=== PATIENT | female | born 1945 | race Caucasian/White ===

== ENCOUNTER 2019-08-04 13:56 | Outpatient (CLI) | payer MEDICARE, SELFPAY ==
--- NOTE | ~2019-08-04 | DEXA_ITS ---
Bone Density Report Name: Jania Blanco Age: 74 Sex: Female Ethnicity: White Date of : 1945 Indication: postmenopausal; parental hip fracture; height loss; Referring Provider: ROBI ANDERSON Study: Bone densitometry was performed. Exam Date: August 04, 2019 Accession number: [id number] Bone Density: Region BMD T-score Z-score Classification AP Spine (L2, L3) 1.122 0.6 2.8 Normal Femoral Neck (Left) 0.651 -1.8 0.1 Osteopenia Total Hip (Left) 0.850 -0.8 0.9 Normal Total Hip Bilateral Avg 0.848 -0.8 0.8 Normal Femoral Neck (Right) 0.615 -2.1 -0.2 Osteopenia Total Hip (Right) 0.845 -0.8 0.8 Normal World Health Organization criteria for BMD impression classify patients as: Normal (T-score at or above -1.0), Osteopenia (T-score between -1.0 and -2.5), or Osteoporosis (T-score at or below -2.5). 10-year Fracture Risk(1): Major Osteoporotic Fracture 19% Hip Fracture 6.8% Reported Risk Factors: [place] (), Neck BMD=0.615, BMI=34.2, parental fracture (1) FRAX(R) Version 3.08. Fracture probability calculated for an untreated patient. Fracture probability may be lower if the patient has received treatment. Previous Exams: Region Exam Age BMD T-score BMD Change BMD Change Date g/cm2 vs Baseline vs Previous AP Spine(L2, L3) 08/04/2019 74 1.122 0.6 0.056(5.3%)# 0.030(2.8%)* 07/31/2017 72 1.091 0.3 0.026(2.5%)# -0.057(-5.0%)* 07/26/2014 69 1.148 0.8 0.083(7.8%)# 0.054(4.9%)# 07/19/2011 65 1.094 0.3 0.029(2.7%)# -0.083(-7.0%)# 07/13/2009 63 1.177 1.1 0.112(10.5%)* 0.112(10.5%)* 07/09/2007 61 1.065 0.1 Total Hip(Left) 08/04/2019 74 0.850 -0.8 -0.156(-15.5%) -0.014(-1.6%) 07/31/2017 72 0.863 -0.6 -0.142(-14.2%) -0.038(-4.3%)* 07/26/2014 69 0.902 -0.3 -0.104(-10.4%) -0.017(-1.9%)# 07/19/2011 65 0.919 -0.2 -0.087(-8.6%)# -0.080(-8.0%)# 07/13/2009 63 0.999 0.5 -0.007(-0.7%) -0.007(-0.7%) 07/09/2007 61 1.006 0.5 Total Hip(Right) 08/04/2019 74 0.845 -0.8 -0.174(-17.1%) -0.066(-7.3%)* 07/31/2017 72 0.912 -0.2 -0.108(-10.6%) -0.005(-0.6%) 07/26/2014 69 0.917 -0.2 -0.102(-10.0%) -0.074(-7.5%)# 07/19/2011 65 0.991 0.4 -0.028(-2.7%)# -0.006(-0.6%)# 07/13/2009 63 0.997 0.4 -0.022(-2.2%) -0.022(-2.2%) 07/09/2007 61 1.019 0.6 *Denotes significance at 95% confidence level, LSC for AP Spine = 0.022 g/cm2, LSC for Total Hip = 0.027 g/cm2 Clinical Information Provided by Patient:
--- NOTE | ~2019-08-04 | MM_ITS ---
EXAMINATION: MM screening [facility] BI w willam HISTORY: Screening mammogram TECHNIQUE: Craniocaudal and mediolateral oblique 3-D tomosynthesis images were obtained and synthetic 2-D images were generated. CAD analysis was submitted and interpreted. COMPARISON: 08/01/2018, 07/31/2017, 07/30/2016 bilateral digital screening mammogram examinations BREAST PARENCHYMAL COMPOSITION: Scattered bilateral benign calcifications. FINDINGS: There is no evidence of suspicious mass, calcification, or architectural distortion to sugg est malignancy in either breast. There has been no suspicious interval change. IMPRESSION: 1. No mammographic evidence of malignancy. 2. Recommend routine screening mammography in one year. BI-RADS Category 2: Benign finding(s). Reviewed, dictated and finalized at location A. KMAN
== END 2019-08-04 13:57 | disposition home or self-care (01) ==
LOC: ANHIMG 14:07
PROVIDERS: PCP Internal Medicine; Visit Provider Internal Medicine
DX: Z12.31 Encounter for screening mammogram for malignant neoplasm of breast (principal); Z78.0 Asymptomatic menopausal state; M85.89 Other specified disorders of bone density and structure, multiple sites
CPT/HCPCS: 77063; 77067; 77080

== ENCOUNTER → 2020-04-05 11:48 | Outpatient (REF) | payer MEDICARE, SELFPAY | LOC: ANHLAB 11:48 | PROVIDERS: PCP Internal Medicine; Visit Provider Nurse Practitioner | DX: D10.39 Benign neoplasm of other parts of mouth (principal) | CPT/HCPCS: 88305 ==

== ENCOUNTER 2020-11-15 14:07 | Outpatient (CLI) | payer MEDICARE, SELFPAY ==
--- NOTE | ~2020-11-15 | MM_ITS ---
EXAMINATION: MM screening [facility] BI w willam HISTORY: Screening mammogram TECHNIQUE: Craniocaudal and mediolateral oblique 3-D tomosynthesis images were obtained and synthetic 2-D images were generated. CAD analysis was submitted and interpreted. COMPARISON: 08/04/2019, 08/01/2018, 07/31/2017, 07/30/2016 bilateral digital screening mammogram examination s BREAST PARENCHYMAL COMPOSITION: There are scattered areas of fibroglandular density. FINDINGS: Numerous bilateral benign calcifications including calcified microhematomas, secretory calc ifications. There is no evidence of suspicious mass, calcification, or architectural distortion to wilson ggest malignancy in either breast. There has been no suspicious interval change. IMPRESSION: 1. Benign findings. No mammographic evidence of malignancy. 2. Recommend routine screening mammography in one year. BI-RADS Category 2: Benign finding(s). Reviewed, dictated and finalized at location A.
== END 2020-11-15 14:08 | disposition home or self-care (01) ==
PROVIDERS: PCP Internal Medicine; Visit Provider Internal Medicine
DX: Z12.31 Encounter for screening mammogram for malignant neoplasm of breast (principal)
CPT/HCPCS: 77063; 77067

== ENCOUNTER 2021-07-18 14:00 | Outpatient (RCR) | payer MEDICARE, SELFPAY ==
--- NOTE | 2021-06-27 14:25 | PTOPEVAL ---
Thank you for referring Jania Blanco to [facility].? The patient is scheduled to be seen for therapy? 2 x/week for 3 weeks. Please review, sign, date and return this plan of care YESI. I agree with and certify that the following plan of care is medically necessary. Referring Physician Date Attending Provider: Deepak Mullen DO Referring Provider: Deepak Mullen DO Diagnosis right and left thigh pain Onset chronic Subjective Information She has fdc leg pain/ Query Text:As Reported By Patient/ discomfort, which increases Family with walking. Improved symptoms with rest. Denies any limitations with waste elimination, steps. She has trouble squating and kneeling due to knee pain. Denies back pain. Pain Assessment Bilateral Upper Leg(s) Reported Pain Level 5 Pain Description Aching Pain Frequency Continuous Lowest Pain Intensity 1 Greatest Pain Intensity 9 Pain Aggravating Factors Walking Lower Extremity Muscle Strength Testing Hip Strength Bilateral Hip Flexion Strength 4 Good Hip Extension Strength 3 Fair Hip Abduction Strength 3- Fair - Knee Strength Bilateral Knee Flexion Strength 4- Good - Knee Extension Strength 4 Good Muscle Length Testing Muscle Length Testing Two-Joint Hip Flexor Shortened Muscles Short (R) Iliopsoas,Short (L) Iliopsoas,Short (R) Rectus Femoris,Short (L) Rectus Femoris,Short (R) Ilial Tib Band,Short (L) Ilial Tib Band Piriformis w/Hip Flexion <90 Degrees (R) Mild Tightness,(L) Mild Tightness Left Hamstring Length -35:(90 - 90 Position) Right Hamstring Length -40:(90 - 90 Position) Gastrocnemius Length (R) Moderate Tightness,(L) Moderate Tightness Muscle Length Testing Comments ankle DF: neutral Posture Posture Standing Position Head/C-Spine Posture Forward Head Thoracic Spine Posture Increased Kyphosis Lumbar Spine Posture Flattened Shoulder Posture (L) Rounded,(R) Rounded Scapula Posture (L) Protracted,(R) Protracted, (L) Tipped,(R) Tipped Weight Distribution Balanced Hip Posture (L) Externally Rotated,(R) Externally Rotated Palpation Assessment Palpation Palpation no tenderness of nacho quad/ITB, knee joints, and gastroc
--- NOTE | 2021-07-18 14:52 | PTOPEVAL ---
Physical Therapy Discharge Note Thank you for referring Jania Blanco to [facility]. Leslie has attended 7 therapy visits to address her leg pain and limitations. As a result of skilled therapy services she demonstrates improved strength, pain, endurance and mobility. She has been instructed in her HEP and demonstrates understanding and compliance. Will DC skilled therapy services at this time. Please review, sign, date and return this discharge summary YESI. I agree with and certify that the following plan of care is medically necessary. Referring Physician Date Attending Provider: Deepak Mullen DO Referring Provider: Deepak Mullen DO Diagnosis right and left thigh pain Onset chronic Subjective Information She does feel better with Query Text:As Reported By Patient/ ascending steps, walking and Family standing after prolonged sitting. Denies any issues with transfers from all surfaces. Pain Assessment Bilateral Upper Leg(s) Reported Pain Level 0 Lowest Pain Intensity 0 Greatest Pain Intensity 0 Lower Extremity Muscle Strength Testing Hip Strength Bilateral Hip Flexion Strength 4+ Good + Hip Extension Strength 4- Good - Hip Abduction Strength 3 Fair Knee Strength Bilateral Knee Flexion Strength 4+ Good + Knee Extension Strength 5 Normal Special Tests-Lower Extremity Hip Special Tests Trendelenburg Sign Positive Left,Positive Right Hip Special Test Comments single leg stance: right 2 and left leg 4 sec Balance Assessment Time Up Go (TUG) Timed Up and Go Test (TUG) (Seconds) 9 Assistive Devices None 5 Time Sit to Stand Time in Seconds 10 5 Time Sit to Stand Comments without UE support, no pain, Query Text:Normative Data: If Greater proper control Than 15 Seconds, 74% Increase Risk for Recurrent Falls Gait Assessment Gait Pattern Assessment Gait Pattern Observed Decreased Stride Length - Left ,Decreased Stride Length - Right,No Heel Strike - Left,No Heel Strike - Right,Trunk Lateral Lean - Right 6 Minute Walk Total Distance (feet) 1,240 6 Minute Walk Gait Speed Score (feet/ 3.44 second) 6 Minute Gait Comments fatigue at 4 min, but no pain Stair Climbing Assessment Stair Climbing Assessment Stair Climbing Assistive Devices Railings Technique Alternating Steps,Single Steps Stair Climbing Ability Independent Stair Climbing Comments demo proper LE control with negotiating steps with reciprocal pattern or step
== END 2021-07-19 09:31 | disposition home or self-care (01) ==
LOC: ANHPT 14:00
PROVIDERS: PCP Internal Medicine; Referring Provider Internal Medicine; Visit Provider Internal Medicine
DX: M79.651 Pain in right thigh (principal); M79.652 Pain in left thigh
CPT/HCPCS: 97110; 97112; 97161; 97530

== ENCOUNTER 2021-07-21 14:12 | Outpatient (CLI) | payer MEDICARE, SELFPAY ==
--- NOTE | ~2021-07-21 | US_ITS ---
EXAMINATION: US arterial ankle brachial ind DATE: 07/21/2021 15:06 INDICATION: Peripheral vascular disease TECHNIQUE: Segmental pressures and plethysmographic and Doppler waveforms of the brachial and lower e xtremity arteries were obtained. COMPARISON: None. FINDINGS: Right and left brachial artery pressures of 72 mm Hg and 92 mm Hg, respectively, are concordant (norm al difference <= 30 mmHg). The right ankle-brachial index (GERONIMO) is 1.01 (normal >= 0.9-1.0). The right great toe-brachial index (TBI) is 0.45 (normal >= 0.65). Arterial Doppler waveforms are biphasic. The left GERONIMO is 1.12. The left TBI is 0.71. Arterial Doppler waveforms are biphasic. IMPRESSION: Bilateral normal GERONIMO Normal left TBI of 0.71 Abnormally low right TBI of 0.45 Reviewed, dictated and finalized at Location A. Reviewed, dictated and finalized at location A. DRY MANAGER
== END 2021-07-21 14:13 | disposition home or self-care (01) ==
PROVIDERS: PCP Internal Medicine; Visit Provider Internal Medicine
DX: I73.9 Peripheral vascular disease, unspecified (principal)
CPT/HCPCS: 93922

== ENCOUNTER 2021-09-22 06:42 | Outpatient (CLI) | payer MEDICARE, SELFPAY ==
--- NOTE | ~2021-09-22 | MR_ITS ---
EXAMINATION: MR brain/brain stem wo/w con EXAM DATE: 09/22/2021 08:11 INDICATION: H91.90 - Unspecified hearing loss, unspecified ear. TECHNIQUE: Multi-sequential, multiplanar MR images of the brain, brainstem, internal auditory canals were obtained without contrast. Whole brain sagittal T1, axial diffusion, gradient echo (T2*), T1, T 2, FLAIR sequences obtained. High resolution coronal 3-D FIESTA, coronal T1 FSE, axial T1 FSPGR of t he internal auditory canals. Patient was then injected with 16 cc Multihance contrast intravenously. Postcontrast axial and coronal T1 weighted whole brain, axial and coronal high resolution T1 IAC seq uences obtained. There are no prior studies for comparison. FINDINGS: There is an enhancing mass filling the right internal auditory canal measuring about 12 x 5 mm on axial dimensions, small amount bulging into the internal auditory canal. Most likely this is a vestibular schwannoma. Left 7th 8th cranial nerve complexes are normal. There are no areas of restricted diffusion to suggest acute infarction. There is no acute hemorrhage seen on the T2*, a hemosiderin sensitive sequence. No intraparenchymal brain mass. The ventricles a re normal in size. There are no extra-axial collections. Flow voids are seen in the cerebral arteri es on the T2-weighted sequences consistent with their expected patency. The orbits are unremarkable. Soft tissue is unremarkable. 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 Reviewed, dictated and finalized at location B. IMPRESSION: Right internal auditory canal mass most likely vestibular schwannom a.
[2021-09-22 07:25] LABS: Estimated Glomerular Filt Rate > 60
== END 2021-09-22 06:43 | disposition home or self-care (01) ==
PROVIDERS: PCP Internal Medicine; Visit Provider Internal Medicine
DX: H91.90 Unspecified hearing loss, unspecified ear (principal); H61.891 Other specified disorders of right external ear
CPT/HCPCS: 70553; A9577

== ENCOUNTER 2021-11-29 09:44 | Outpatient (CLI) | payer MEDICARE, SELFPAY ==
--- NOTE | ~2021-11-29 | MM_ITS ---
EXAMINATION: MM screening [facility] BI w willam HISTORY: Screening mammogram TECHNIQUE: Craniocaudal and mediolateral oblique 3-D tomosynthesis images were obtained and synthetic 2-D images were generated. CAD analysis was submitted and interpreted. COMPARISON: 11/15/2020, 08/04/2019, 08/01/2018 BREAST PARENCHYMAL COMPOSITION: The breasts are almost entirely fatty. FINDINGS: Scattered benign-appearing calcifications are present. There is no suspicious mass, calcifi cation, or architectural distortion to suggest malignancy in either breast. There has been no suspici ous interval change. IMPRESSION: 1. No mammographic evidence of malignancy. 2. Recommend routine screening mammography in one year. BI-RADS Category 2: Benign finding(s). Reviewed, dictated and finalized at location A.
--- NOTE | ~2021-11-29 | DEXA_ITS ---
Bone Density Report Name: ROSI SOTO Age: 76 Sex: Female Ethnicity: White Date of : 1945 Indication: postmenopausal; screening for osteoporosis; Referring Provider: ROBI ANDERSON Study: Bone densitometry was performed. Exam Date: November 29, 2021 Accession number: [id number] Bone Density: Region BMD T-score Z-score Classification AP Spine(L1, L2, L3) 1.139 1.1 3.4 Normal Femoral Neck (Left) 0.656 -1.7 0.3 Osteopenia Total Hip (Left) 0.821 -1.0 0.7 Normal Femoral Neck (Right) 0.661 -1.7 0.3 Osteopenia Total Hip (Right) 0.843 -0.8 0.9 Normal Total Hip Mean 0.832 -0.9 0.8 Normal World Health Organization criteria for BMD impression classify patients as: Normal (T-score at or above -1.0), Osteopenia (T-score between -1.0 and -2.5), or Osteoporosis (T-score at or below -2.5). 10-year Fracture Risk(1): Major Osteoporotic Fracture 11% Hip Fracture 2.2% Reported Risk Factors: [place] (), Neck BMD=0.656, BMI=35.4 (1) FRAX(R) Version 3.08. Fracture probability calculated for an untreated patient. Fracture probability may be lower if the patient has received treatment. Previous Exams: Region Exam Age BMD T-score BMD Change BMD Change Date g/cm2 vs Baseline vs Previous AP Spine (L1-L3) 11/29/2021 76 1.139 1.1 0.053 (4.8%)# 0.064 (6.0%)* 07/31/2017 72 1.075 0.5 -0.012 (-1.1%) -0.067 (-5.8%) 07/26/2014 69 1.141 1.1 0.055 (5.1%)# 0.055 (5.1%)# 07/19/2011 65 1.086 0.6 Total Hip(Left) 11/29/2021 76 0.821 -1.0 -0.098 (-10.7% -0.029 (-3.4%) 08/04/2019 74 0.850 -0.8 -0.069 (-7.5%) -0.014 (-1.6%) 07/31/2017 72 0.863 -0.6 -0.056 (-6.0%) -0.038 (-4.3%) 07/26/2014 69 0.902 -0.3 -0.017 (-1.9%) -0.017 (-1.9%) 07/19/2011 65 0.919 -0.2 Total Hip(Right) 11/29/2021 76 0.843 -0.8 -0.148 (-14.9% -0.002 (-0.3%) 08/04/2019 74 0.845 -0.8 -0.146 (-14.7% -0.066 (-7.3%) 07/31/2017 72 0.912 -0.2 -0.080 (-8.0%) -0.005 (-0.6%) 07/26/2014 69 0.917 -0.2 -0.074 (-7.5%) -0.074 (-7.5%) 07/19/2011 65 0.991 0.4 *Denotes significance at 95% confidence level, LSC for AP Spine = 0.022 g/cm2, LSC for Total Hip = 0.027 g/cm2 # Denotes dissimilar scan types or analysis methods Clinical Information Provided by Patient: Has used the following medications: Vitamin D Patient maximum height was 63 Menopause Age: 47 No regular weight bearing exercise Drinks caffeinated beverages Onset of menses at age 12
== END 2021-11-29 09:45 | disposition home or self-care (01) ==
LOC: ANHIMG 09:49
PROVIDERS: PCP Internal Medicine; Visit Provider Internal Medicine
DX: Z12.31 Encounter for screening mammogram for malignant neoplasm of breast (principal); Z78.0 Asymptomatic menopausal state; M85.851 Other specified disorders of bone density and structure, right thigh; M85.852 Other specified disorders of bone density and structure, left thigh
CPT/HCPCS: 77063; 77067; 77080

== ENCOUNTER 2022-03-15 12:30 | Outpatient (RCR) | payer MEDICARE, SELFPAY ==
--- NOTE | 2022-02-20 14:41 | PTOPEVAL1 ---
Evaluation Information Assessment Status Evaluation Diagnosis imbalance Onset Mar 2021 Subjective Information more issues with balance and walking, and stairs with decreased hearing of R ear; have tripped and lost her balance, but not any falls in the past 6 months; in June had therapy and is doing leg exercises lying down; is careful with walking; issues on uneven surfaces/grass; Reported Pain Level Pain Score 0: Self Report Assessment PT Clinical Summary Leslie has the diagnosis of imbalance. Her MRI report states R internal auditory canal mass-? vestibular Schwannoma. Her hearing is decrease in her R ear, she reports about 50% of hearing. She reports balance issues with walking on uneven surfaces and on stairs. She has had loss of her balance, but not any falls. With the evaluation, she has decreased strength of R and L LE, with decreased single leg standing and decreased motor control with sitting ankle circles; The Kwon balance score is 50/56; Scores for 5 reps sit/standnad TUG are WNL. Skilled PT services are indicated to increase LE strength, dynamic balance skills and education for home exercises, to improve safety with mobility. Plan of Care Interventions Neuro Re-education,Patient/Caregiver Education, Therapeutic Activities,Therapeutic Exercise PT Services Indicated Yes Treatment Frequency and 2x/wk for 3 weeks Duration These treatments will address the objective and functional deficits as defined above. The patient will be advanced safely and appropriately in order for the patient to progress towards his/her prior level of function. Additional exercises will be introduced and as well as a comprehensive home exercise program upon discharge, if needed, ?to ensure carryover of functional gains achieved in the clinic. This treatment plan has been reviewed and agreement upon by the patient.
--- NOTE | 2022-03-15 13:08 | PTOPDC ---
Assessment and note entered by Nuzhat Weeks, PT Evaluation Information Assessment Status Discharge Diagnosis imbalance Onset Mar 2021 Subjective Information Leslie reports: feel comfortable walking on a flat surface; in the yard, on uneven surface, walk slower and more cautious; have gone into the basement to do laundry- did fine with it, take it slow and one step at a time; doing the exercises at home and doing well with them; have not had any falls; cannot think of anything at home giving her problems; agrees to d/c from PT; Reported Pain Level Pain Score 0: Self Report Assessment PT Clinical Summary Leslie has received 7 PT sessions for decreased balance. She has improved since the initial evaluation: Kwon balance score by 2 points, R and L LE strength with mat exercises, single leg standing R and L; walking balance on uneven surfaces; At home, she is comfortable with her mobility on the stairs and in her yard. The goals were partially achieved. Discharge PT treatment, she is to continue with her HEP and increase activity as tolerated. Plan of Care PT Services Indicated No
== END 2022-03-16 10:49 | disposition home or self-care (01) ==
LOC: ANHPT 12:30
PROVIDERS: PCP Internal Medicine
DX: R26.89 Other abnormalities of gait and mobility (principal)
CPT/HCPCS: 97110; 97112; 97161

== ENCOUNTER 2023-02-07 10:22 | Outpatient (CLI) | payer MEDICARE, SELFPAY ==
--- NOTE | ~2023-02-07 | MM_ITS ---
EXAMINATION: MM screening [facility] BI w willam HISTORY: Screening TECHNIQUE: Craniocaudal and mediolateral oblique 3-D tomosynthesis images were obtained and synthetic 2-D images were generated. CAD analysis was submitted and interpreted. COMPARISON: No prior mammogram is available for comparison at this institution. BREAST PARENCHYMAL COMPOSITION: There are scattered areas of fibroglandular density. FINDINGS: There is no evidence of suspicious mass, calcification, or architectural distortion to sugg est malignancy in either breast. There has been no suspicious interval change. IMPRESSION: 1. No mammographic evidence of malignancy. 2. Recommend routine screening mammography in one year. BI-RADS Category 1: Negative Reviewed, dictated and finalized at location A.
== END 2023-02-07 10:23 | disposition home or self-care (01) ==
PROVIDERS: PCP Family Medicine; Visit Provider Family Medicine
DX: Z12.31 Encounter for screening mammogram for malignant neoplasm of breast (principal)
CPT/HCPCS: 77063; 77067

== ENCOUNTER 2024-01-08 13:43 | Outpatient (CLI) | payer MEDICARE, SELFPAY ==
--- NOTE | ~2024-01-08 | DEXA_ITS ---
Bone Density Report Name: ROSI SOTO Age: 78 Sex: Female Ethnicity: White Date of : 1945 Indication: postmenopausal; screening for osteoporosis; parental hip fracture; height loss; history of glucocorticoids; Referring Provider: SUSANA BOWSER Study: Bone densitometry was performed. Exam Date: January 08, 2024 Accession number: [id number] Bone Density: Region BMD T-score Z-score Classification AP Spine(L1-L4) 1.158 1.0 3.5 Normal Femoral Neck (Left) 0.691 -1.4 0.7 Osteopenia Total Hip (Left) 0.908 -0.3 1.6 Normal Femoral Neck (Right) 0.645 -1.8 0.3 Osteopenia Total Hip (Right) 0.963 0.2 2.0 Normal Total Hip Mean 0.935 -0.1 1.8 Normal World Health Organization criteria for BMD impression classify patients as: Normal (T-score at or above -1.0), Osteopenia (T-score between -1.0 and -2.5), or Osteoporosis (T-score at or below -2.5). 10-year Fracture Risk: FRAX not reported because: Treated for osteoporosis Clinical Information Provided by Patient: Parent has had a hip fracture Has taken Glucocorticoids Is being treated for osteoporosis Has used the following medications: Vitamin D, Calcium Patient maximum height was 63 Menopause Age: 47 Onset of menses at age 12 Number of children 0 Impression: The patient has low bone mass, based on the Right Femoral Neck T-score. The patient has risk factors, including: parental hip fracture, history of glucocorticoid therapy. Discussion: It is important to ask patients whether they are taking their medications and to encourage continued and appropriate compliance with their osteoporosis therapies to reduce fracture risk. It is also important to review their risk factors and encourage appropriate calcium and vitamin D intakes, exercise, fall prevention and other lifestyle measures. Follow-Up: Consider a repeat BMD and Vertebral Fracture Assessment (VFA) exam in 2 years or sooner if medically necessary, to reassess this patient's status. Reported by: KODY on 01/08/2024 2:31:00 PM. Reviewed, dictated and finalized at location AJuana PANDEY
== END 2024-01-08 13:44 | disposition home or self-care (01) ==
PROVIDERS: PCP Family Medicine; Visit Provider Family Medicine
DX: M85.89 Other specified disorders of bone density and structure, multiple sites (principal); Z78.0 Asymptomatic menopausal state; Z13.820 Encounter for screening for osteoporosis
CPT/HCPCS: 77080

== ENCOUNTER 2024-02-10 13:50 | Outpatient (CLI) | payer MEDICARE, SELFPAY ==
--- NOTE | ~2024-02-10 | MM_ITS ---
EXAMINATION: MM screening [facility] BI w willam HISTORY: Screening TECHNIQUE: Craniocaudal and mediolateral oblique 3-D tomosynthesis images were obtained and synthetic 2-D images were generated. CAD analysis was submitted and interpreted. COMPARISON: Comparison to multiple prior studies sequentially, with oldest reviewed study dated 07/31/2017. BREAST PARENCHYMAL COMPOSITION: Not dense: There are scattered areas of fibroglandular density. FINDINGS: There is no evidence of suspicious mass, calcification, or architectural distortion to sugg est malignancy in either breast. There has been no suspicious interval change. IMPRESSION: 1. No mammographic evidence of malignancy. 2. Recommend routine screening mammography in one year. BI-RADS Category 1: Negative Reviewed, dictated and finalized at location B.
== END 2024-02-10 13:51 | disposition home or self-care (01) ==
LOC: ANHIMG 13:51
PROVIDERS: PCP Family Medicine; Visit Provider Family Medicine
DX: Z12.31 Encounter for screening mammogram for malignant neoplasm of breast (principal)
CPT/HCPCS: 77063; 77067

== ENCOUNTER 2025-01-15 14:11 | Outpatient (CLI) | payer MEDICARE, SELFPAY ==
--- NOTE | ~2025-01-15 | DEXA_ITS ---
Bone Density Report Name: ROSI SOTO Age: 79 Sex: Female Ethnicity: White Date of : 1945 Indication: postmenopausal; screening for osteoporosis; parental hip fracture; height loss; Referring Provider: SUSANA BOWSER Study: Bone densitometry was performed. Exam Date: January 15, 2025 Accession number: [id number] Bone Density: Region BMD T-score Z-score Classification AP Spine(L1-L4) 1.259 1.9 4.5 Normal Femoral Neck (Left) 0.652 -1.8 0.4 Osteopenia Total Hip (Left) 0.850 -0.8 1.2 Normal Femoral Neck (Right) 0.654 -1.8 0.4 Osteopenia Total Hip (Right) 0.876 -0.5 1.4 Normal Total Hip Mean 0.863 -0.7 1.3 Normal World Health Organization criteria for BMD impression classify patients as: Normal (T-score at or above -1.0), Osteopenia (T-score between -1.0 and -2.5), or Osteoporosis (T-score at or below -2.5). 10-year Fracture Risk(1): Major Osteoporotic Fracture 22% Hip Fracture 12% Reported Risk Factors: [place] (), Neck BMD=0.652, BMI=32.4, parental fracture (1) FRAX(R) Version 3.08. Fracture probability calculated for an untreated patient. Fracture probability may be lower if the patient has received treatment. Previous Exams: Region Exam Age BMD T-score BMD Change BMD Change Date g/cm2 vs Baseline vs Previous AP Spine (L1-L4) 01/15/2025 79 1.259 1.9 0.168 (15.5%)# 0.100 (8.7%)* 01/08/2024 78 1.158 1.0 0.068 (6.2%)# 0.061 (5.5%)* 07/31/2017 72 1.098 0.5 0.007 (0.7%)# -0.033 (-2.9%) 07/26/2014 69 1.130 0.8 0.040 (3.7%)# 0.040 (3.7%)# 07/19/2011 65 1.090 0.4 Total Hip(Left) 01/15/2025 79 0.850 -0.8 -0.069 (-7.5%) -0.058 (-6.4%) 01/08/2024 78 0.908 -0.3 -0.011 (-1.2%) 0.087 (10.6%)* 11/29/2021 76 0.821 -1.0 -0.098 (-10.7% -0.029 (-3.4%) 08/04/2019 74 0.850 -0.8 -0.069 (-7.5%) -0.014 (-1.6%) 07/31/2017 72 0.863 -0.6 -0.056 (-6.0%) -0.038 (-4.3%) 07/26/2014 69 0.902 -0.3 -0.017 (-1.9%) -0.017 (-1.9%) 07/19/2011 65 0.919 -0.2 Total Hip(Right) 01/15/2025 79 0.876 -0.5 -0.115 (-11.6% -0.087 (-9.0%) 01/08/2024 78 0.963 0.2 -0.029 (-2.9%) 0.120 (14.2%)* 11/29/2021 76 0.843 -0.8 -0.148 (-14.9% -0.002 (-0.3%) 08/04/2019 74 0.845 -0.8 -0.146 (-14.7% -0.066 (-7.3%) 07/31/2017 72 0.912 -0.2 -0.080 (-8.0%) -0.005 (-0.6%) 07/26/2014 69 0.917 -0.2 -0.074 (-7.5%) -0.074 (-7.5%) 07/19/2011 65 0.991 0.4 *Denotes significance at 95% confidence level, LSC for AP Spine = 0.022 g/cm2, LSC for Total Hip = 0.027 g/cm2 # Denotes dissimilar scan types or analysis methods Clinical Information Provided by Patient: Parent has had a hip fracture Has used the following medications: Vitamin D, Calcium Patient maximum height was 63 Menopause Age: 47 No regular weight bearing exercise Drinks caffeinated beverages Onset of menses at age 12 Number of children 0 Impression: The patient has low bone mass, based on the Left Femoral Neck T-score. The patient has an estimated ten-year risk of hip fracture of 12% and an estimated ten-year risk of major fracture of 22%, based on the WHO FRAX algorithm. The patient has risk factors, including: parental hip fracture. The BMD for the Total Hip(Left) decreased, changing by -6.4% since the last DXA exam. The BMD for the Total Hip(Right) decreased, changing by -9.0% since the last DXA exam. Discussion: BONE DENSITY IS LOW AT ONE OR MORE SKELETAL SITES. THE PATIENT'S BMD AND CLINICAL RISK FACTORS CONTRIBUTE TO THIS PATIENT'S HIGH RISK OF FRACTURE. This patient's lowest T-score is low at one or more skeletal sites. It meets the World Health Organization's (WHO) criteria for ?low bone mass? (T-score between -1.0 and -2.5). The patient's 10-year risk of hip fracture and 10 year risk of a major osteoporotic fracture as calculated by FRAX exceeds the threshold where pharmacological therapy is recommended by the National Osteoporosis Foundation (NOF). However, all treatment decisions require clinical judgment and consideration of individual patient factors, including patient preferences, comorbidities, previous drug use, risk factors not captured in the FRAX model (e.g., frailty, falls, vitamin D deficiency, increased bone turnover, interval significant decline in bone density) and possible under or overestimation of fracture risk by FRAX. The patient should follow a healthful lifestyle (good nutrition with adequate calcium and vitamin D, and appropriate weight-bearing exercise). Follow-Up: Consider a repeat BMD and Vertebral Fracture Assessment (VFA) exam in 2 years or sooner if medically necessary, to reassess this patient's status. Reported by: KODY on 01/15/2025 2:48:00 PM. Reviewed, dictated and finalized at location A.
--- OUTSIDE RECORDS SUMMARY | 2025-01-15 14:14 | XMS_ITS | Referral Summary ---
Author Organization [facility] Address [address] [place] [id number] Care Team Providers Care Cook Chief Name Role Phone Terrance Seth MD Primary Care Provider [phone] Allergies No known active allergies Medications Restasis 0.05 % ophthalmic emulsion 1 drop 2 (two) times a day 09/18/2021 Active doxepin (SINEquan) 75 mg capsule Take by mouth daily 10/01/2021 Active indapamide (LOZOL) 2.5 mg tablet Take 2.5 mg by mouth daily 10/01/2021 Active lisinopriL (PRINIVIL,ZESTRI L) 20 mg tablet Take 20 mg by mouth daily 10/01/2021 Active Prolia 60 mg/mL syringe 12/13/2021 Active Active Problems Problem Noted Date Diagnosed Date Vestibular schwannoma 12/20/2021 Asymmetric SNHL (sensorineural hearing loss) Social History Tobacco Use Types Packs/Day Years Used Date Smoking Tobacco: Never Smokeless Tobacco: Never AUDIT-C Answer Date Recorded Q1: How often do you have a drink containing alcohol? Never 11/09/2021 Q2: How many drinks containi ng alcohol do you have on a typical day when you are drinking? Patient does not drink Q3: How often do you have si x or more drinks on one occasion? 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 Gender Identity Not on file Sexual Orientation Not on file Last Filed Vital Signs Vital Sign Reading Time Taken Comments Blood Pressure 103/71 12/20/2021 4:46 PM CDT Pulse 86 12/20/2021 4:46 PM CDT Temperature 36.8 C (98.2 F) 11/09/2021 2:00 PM CDT Respiratory Rate 20 11/09/2021 2:00 PM CDT Oxygen Saturation - - Inhaled Oxygen Concentration - - Weight 78.5 kg (173 lb) 07/07/2024 4:43 PM DYE ROOM HELPER Height 154.9 cm (5' 1) 07/07/2024 4:43 PM DYE ROOM HELPER Body Mass Index 32.69 07/07/2024 4:43 PM DYE ROOM HELPER Plan of Treatment Not on file Insurance PENDING SALE TO [employer] MED[employer] GOLD PENDING SALE TO [employer] MEDIC[employer] GOLD Care Teams Cook Chief Relationship Specialty Start Date End Date Terrance Seth MD PCP - General Family Practice 07/09/23
--- OUTSIDE RECORDS SUMMARY | 2025-01-15 14:14 | XMS_ITS | Clinical Summary ---
Author Organization [facility] Address [address] [place] [id number] Care Team Providers Care Leather Lacer Name Role Phone Terrance Seth MD Primary Care Provider [phone] [phone] Allergies No known active allergies Medications Restasis [...] schwannoma 12/20/2021 Asymmetric SNHL (sensorineural hearing loss) Surgical History Surgery Date Site/Laterality Comments LASIK 06/24/2016 - 06/23/2017 Bilateral catract extraction Medical History Medical History Date Comments Anxiety HL (hearing loss) Osteoporosis Dry eyes Family History Medical History Relation Name Comments Hypertension Brother Anemia Father Kidney disease Maternal Grandfather Cancer Maternal Grandmother Hypertension Maternal Grandmother Diabetes Mother Hypertension Mother Kidney disease Mother Depression Sister Relation Name Status Comments Brother Father Maternal Grandfather Maternal Grandmother Mother Sister Social History Tobacco Use Types Packs/Day Years Used Date Smoking Tobacco: Never Smokeless Tobacco: Never AUDIT-C Answer Date Recorded Q1: How often do you have a drink containing alcohol? Never 11/09/2021 Q2: How many drinks containi ng alcohol do you have on a typical day when you are drinking? Patient does not drink 05/19/202 2 Q3: How often do you have si x or more drinks on one occasion? Never 11/09/2021 Comments Unknown Sex and Gender Information Value Date Recorded Sex Assigned at Not on file Legal Sex Female 5:20 AM REHABILITATION NURSE Gender Identity Not on file Sexual Orientation Not on file Obstetrics History Last Filed Vital Signs Vital Sign Reading Time Taken Comments Blood Pressure 103/71 12/20/2021 4:46 PM CDT Pulse 86 12/20/2021 4:46 PM CDT Temperature 36.8 C (98.2 F) 11/09/2021 2:00 PM CDT Respiratory Rate 20 11/09/2021 2:00 PM CDT Oxygen Saturation - - Inhaled Oxygen Concentration - - Weight 78.5 kg (173 lb) 07/07/2024 4:43 PM REHABILITATION NURSE Height 154.9 cm (5' 1) 07/07/2024 4:43 PM REHABILITATION NURSE Body Mass Index 32.69 07/07/2024 4:43 PM REHABILITATION NURSE Plan of Treatment Health Maintenance Due Date Last Done Comments Depression Screening 1945 Fall Risk Assessment 1945 Hepatitis C Screening 1945 Osteoporosis Screening-Bone Density Scan 1945 Hepatitis B Screening 1965 DTaP/Tdap/Td Vaccine (1 - Tdap) 05/24/2010 0, 10/23/2000 Zoster Vaccine (2 of 3) 07/16/2012 05/21/2012 Well Visit 65+ 2012 Pneumococcal vaccine 65+ (2 of 2 - PCV) 08/06/2013 08/06/2012 Covid-19 Vaccine (5 - 2023-2 5 season) 2024 10/07/2021, 04/12/2021, 10/04/2020, Additional history exists Influenza Vaccine (#1) 2025 , 03/17/2020, 03/16/2019, Additional history exists Insurance [employer] MEDICARE GOLD AET[employer] MEDICARE GOLD Care Teams Leather Lacer Relationship Specialty Start Date End Date Terrance Seth MD PCP - General Family Practice 07/09/23
== END 2025-01-15 14:12 | disposition home or self-care (01) ==
LOC: ANHIMG 14:12
PROVIDERS: PCP Family Medicine; Visit Provider Family Medicine
DX: M85.852 Other specified disorders of bone density and structure, left thigh (principal); M85.851 Other specified disorders of bone density and structure, right thigh; M81.0 Age-related osteoporosis without current pathological fracture
CPT/HCPCS: 77080

== ENCOUNTER 2025-02-10 13:37 | Outpatient (CLI) | payer MEDICARE, SELFPAY ==
--- NOTE | ~2025-02-10 | MM_ITS ---
EXAMINATION: MM screening rufino BI w willam HISTORY: Screening mammogram TECHNIQUE: Craniocaudal and mediolateral oblique 3-D tomosynthesis images were obtained and synthetic 2-D images were generated. CAD analysis was submitted and interpreted. COMPARISON: 02/10/2024, 02/07/2023, 11/29/2021 BREAST PARENCHYMAL COMPOSITION:Not Dense. The breasts are almost entirely fatty FINDINGS: No suspicious mass, calcification, or architectural distortion are identified in either breast to suggest malignancy. There has been no suspicious interval change. IMPRESSION: No mammographic evidence of malignancy. Recommend routine screening mammography in one year. BI-RADS Category 1: Negative Reviewed, dictated and finalized at location .
--- OUTSIDE RECORDS SUMMARY | 2025-02-10 14:04 | XMS_ITS | Clinical Summary ---
Author Organization [facility] Address [address] [place] [id number] Care Team Providers Care Clinical Account Executive Name Role Phone Terrance Seth MD Primary Care Provider [phone] [phone] Allergies No known active allergies Medications Restasis [...] on file Legal Sex Female 5:20 AM FLOOR FINISHER Gender Identity Not on file Sexual Orientation [...] 78.5 kg (173 lb) 07/07/2024 4:43 PM FLOOR FINISHER Height 154.9 cm (5' 1) 07/07/2024 4:43 PM FLOOR FINISHER Body Mass Index 32.69 07/07/2024 4:43 PM FLOOR FINISHER Plan of Treatment Health Maintenance Due Date [...] MEDICARE GOLD AETNA MEDICARE GOLD Care Teams Clinical Account Executive Relationship Specialty Start Date End Date Terrance Seth MD PCP - General Family Practice 07/09/23
== END 2025-02-10 13:38 | disposition home or self-care (01) ==
LOC: ANHFOHIMG 13:39
PROVIDERS: PCP Family Medicine; Visit Provider Family Medicine
DX: Z12.31 Encounter for screening mammogram for malignant neoplasm of breast (principal)
CPT/HCPCS: 77063; 77067